=== PATIENT | female | born 2000 | race Caucasian/White ===

== ENCOUNTER → 2025-01-22 13:33 | Outpatient (CLI) | payer OTHER, SELFPAY ==
--- NOTE | 2025-01-22 13:36 | DI.US.S_ITS ---
PROCEDURE: US OB >= 14 WEEKS FETUS INDICATIONS: 20WK ANATOMY SCAN OUTSIDE/PRIOR DATING DATA: Last menstrual period (LMP): 09/04/24. LMP-based estimated date of delivery ([facility]ER[facility]): 06/11/25. First dating scan (date and location): This study. Estimated date of delivery ([facility]ER[facility]) from first dating scan: 06/11/25. TECHNIQUE: Real-time scanning was performed of the fetus, with image documentation and biometric measurements. Endovaginal scanning: Not needed COMPARISON: None. FINDINGS: General: A single living intrauterine gestation is present. Presentation: Vertex. Placenta: Placental position is posterior , without previa. Amniotic fluid index: 13.2 cm, normal range is 5-24 cm. Single deepest vertical pocket is 6.0 cm. heart rate: 144 beats per minute. Maternal cervical canal: 3.5 cm long. Normal lower limit is 2.5 cm. biometrics: Biparietal diameter: 4.7 cm, 20 weeks 2 days Head circumference: 17.7 cm, 20 weeks 1 day Abdominal circumference: 15.8 cm, 21 weeks 0 days Femur length: 3.2 cm, 19 weeks 6 days Clinically estimated gestational age: 20 weeks 0 days Composite gestational age from present scan: 20 weeks 2 days Estimated weight and percentile: 351 g, 68th percentile Anatomic survey: Neuro: Ventricles are non-dilated at less than 10 mm. Cisterna magna is normal at 3-11 mm. Cerebellum is normal in size and morphology. Nuchal skin fold: Normal at less than 6 mm between 14-21 weeks gestational age. Face: Nose and lips, facial profile are normal. Spine: No evidence for spina bifida. Heart: 4-chambered heart is present, with normal ventricular outflow tracts. Diaphragm: Diaphragm is intact. Stomach: Left-sided stomach is present. Kidneys: No hydronephrosis. Normal is less than 5 mm in 2nd trimester, less than 7 mm in 3rd trimester. Cord: 3-vessel cord has orthotopic insertion. Bladder: Normal in size. Extremities: All 4 extremities identified. IMPRESSION: Appropriate interval growth, no anomaly seen. The delivery date is projected to be centered on 06/11/25. Dictated by: Lucien Nielsen M.D. on 01/22/2025 at 16:31 Approved by: Lucien Nielsen M.D. on 01/22/2025 at 16:34
== END ==
LOC: US 13:36
PROVIDERS: Referring Provider Advanced Practice Midwife; Visit Provider Advanced Practice Midwife
DX: Z34.92 Encounter for supervision of normal pregnancy, unspecified, second trimester (principal); Z3A.20 20 weeks gestation of pregnancy
CPT/HCPCS: 76811